=== PATIENT | female | born 1940 | race Caucasian/White ===

== ENCOUNTER 2019-07-14 07:01 | Day surgery (SDC) | payer MEDICARE, OTHER ==
[~2019-07-14] VITALS: Ht 160 cm; Wt 81.6 kg
[~2019-07-14 07:01] MED LIST: DEMEROL50 MG PO; HYDROCHLOROTH12.5 M1 PO; HYDROMORPHONE IMP; KLONOPIN1 MG PO; LASIX40 MG PO; LEVAQUIN750 MG PO; MELATONIN 3 MG1 TAB PO; NORVASC10 MG PO; PERCOCET 10/3251 TA1 PO; PHENERGAN25 M1 PO; POTASSIUM CHLO10 ME1 PO; ZAROXOLYN5 MG PO
[2019-07-14] MEDS ORDERED: HYDROCODON-ACE1 EAC7 PO (07:57)
[2019-07-14 08:07] VITALS: BP 162/95; Ht 160 cm; Wt 81.6 kg
[2019-07-14 08:18] LABS: BASOPHILS 0.3 % (0-2); EOSINOPHILS 1.7 % (0-7); HEMATOCRIT 36.4 % (36.0-48.0); HEMOGLOBIN 11.8 g/dL (12-16); IMMATURE GRANULOCYTES 0.3 % (0-5); LYMPHOCYTES 35.8 % (15-50); MCHC 32.4 g/dL (31.0-37.0); MCV 95.5 fL (80.0-100.0); MEAN PLATELET VOLUME 10.4 fL (7.4-10.4); MONOCYTES 17.7 % (2-11); NEUTROPHILS 44.2 % (40-80); PLATELET COUNT 309 10x3/uL (130-400); RBC 3.81 10x6/uL (4.00-5.40); RDW 14.5 % (11.5-14.5); WBC 10.2 10x3/uL (4.8-10.8)
[2019-07-14 08:39] LABS: APTT 29.4 SECONDS (22.8-39.4); INR 1.02 (0.85-1.17); PROTIME 12.9 SECONDS (11.6-15.0)
[2019-07-14] MEDS ORDERED: HYDROCODON-ACE1 EA10 PO (09:41)
--- NOTE | 2019-07-14 12:14 | OP ---
PATIENT NAME: CARMEN KEARNS MEDICAL RECORD: [id number] :42 LOCATION:D.OPS ADMISSION DATE: SURGEON: HALIE THOMPSON MD DATE OF OPERATION: 07/14/2019 PREOPERATIVE DIAGNOSIS: Ganglion cyst, dorsum of the left foot. POSTOPERATIVE DIAGNOSIS: Venous varicosity, dorsum of the foot -- painful. PROCEDURE: Excision of the large varicose vein, dorsum of the foot. SURGEON: Halie Thompson MD [employer] ATTENDANT: BERT Emery. INTRAOPERATIVE COMPLICATIONS: None. SUMMARY OF PATHOLOGIC FINDINGS: On dissecting out the entire cyst, it had a blood filled appearance and was easily drainable and refilled giving more to it being a large tortuous varicosity. It was dissected out, tied, and removed. OPERATIVE SUMMARY IN DETAIL: After obtaining the appropriate preoperative orthopedic surgery consent as well as anesthetic consultation, evaluation and clearance, the patient was brought to the operating room and placed on the operating table in a supine position. After adequate light TIVA anesthesia was administered, the regional anesthesia was checked. The patient had good paresthesia. The incision was made directly over the large cystic area. Dissection was carried down and the findings were as noted above. Very careful dissection around the area of the tortuous varicose vein was done. It was dissected out carefully and clamped and tied with 2-0 silk sutures. The midsection entirety was taken out and removed. Good bleeding control was obtained. Wound was then irrigated and closed with 2-0 Vicryl followed by 3-0 Prolene. Sterile dressings were applied. Postop shoe was applied. The patient was awakened and taken to the recovery room in stable condition. All final needle and sponge counts were correct. TRANSINT:[id number] Voice Confirmation ID: [id number] DOCUMENT ID: [id number] HALIE THOMPSON MD at 1214 CC: [id number] DICTATION DATE: 07/14/19 0944 GREEN CHAIN OFF BEARER: 07/14/19 1131 REG [facility] [address] [place] [address]
== END 2019-07-14 13:30 | disposition home or self-care (01) ==
LOC: D.OPS 07:01 → D.PAN 10:15 → D.OPS 10:15 → D.PAN 13:10 → D.OPS 13:10 → D.PAN 13:45
PROVIDERS: Anesthesiology; ATTEND Orthopaedic Surgery
DX: I86.8 Varicose veins of other specified sites (principal); Z01.812 Encounter for preprocedural laboratory examination

== ENCOUNTER → 2019-08-31 16:37 | Outpatient (CLI) | payer MEDICARE, OTHER ==
[2019-07-14 08:07] VITALS: BMI 31.9
[~2019-08-31 16:37] MED LIST changes: +HYDROCODON-ACE1 EA10 PO; +HYDROCODON-ACE1 EAC7 PO
[2019-08-31 17:46] LABS: BASOPHILS 0.5 % (0-2); EOSINOPHILS 1.7 % (0-7); HEMATOCRIT 40.9 % (36.0-48.0); HEMOGLOBIN 12.7 g/dL (12-16); IMMATURE GRANULOCYTES 0.2 % (0-5); LYMPHOCYTES 43.1 % (15-50); MCH 30.1 pg (26.0-34.0); MCHC 31.1 g/dL (31.0-37.0); MCV 96.9 fL (80.0-100.0); MEAN PLATELET VOLUME 10.2 fL (7.4-10.4); NEUTROPHILS 40.5 % (40-80); PLATELET COUNT 323 10x3/uL (130-400); RBC 4.22 10x6/uL (4.00-5.40); RDW 14.7 % (11.5-14.5); WBC 10.9 10x3/uL (4.8-10.8)
[2019-08-31 19:25] LABS: ERYTHROCYTE SEDIMENTATION RATE 38 mm/hr (0-30)
== END | disposition home or self-care (01) ==
LOC: D.US 16:30
PROVIDERS: ATTEND Clinical Nurse Specialist Family Health
DX: R60.0 Localized edema (principal)

== ENCOUNTER → 2019-10-04 09:12 | Outpatient (CLI) | payer MEDICARE, OTHER ==
[2019-07-14 08:07] VITALS: BMI 31.9
== END | disposition home or self-care (01) ==
LOC: D.US 09:12
PROVIDERS: ATTEND Surgery
DX: I83.813 Varicose veins of bilateral lower extremities with pain (principal)